=== PATIENT | male | born 1995 | race Caucasian/White ===

== ENCOUNTER 2018-01-07 13:01 | Outpatient (CLI) | payer OTHER ==
--- NOTE | 2018-01-07 16:08 | RAD ---
TWO VIEW ABDOMEN: 01/07/18 HISTORY: Constipation and abdominal pain. Scattered stool and gas seen throughout the colon. Small bowel gas pattern is normal. No mass effect or abnormal calcification. Slight curvature of the lumbar spine to the left. IMPRESSION: Unremarkable bowel gas pattern. POS: SIRISHA
== END 2018-01-07 13:02 | disposition home or self-care (01) ==
LOC: BICRAD 13:01
PROVIDERS: ATTEND Physician Assistant Medical
DX: K59.09 Other constipation (principal)
CPT/HCPCS: 74019

== ENCOUNTER 2021-11-08 11:28 | Outpatient (CLI) | payer OTHER | END 2021-11-08 11:29 | disposition home or self-care (01) | LOC: BICRAD 11:28 | PROVIDERS: ATTEND Family Medicine | DX: M25.572 Pain in left ankle and joints of left foot (principal) ==

== ENCOUNTER 2022-09-25 15:05 | Outpatient (CLI) | payer OTHER | END 2022-09-25 15:06 | disposition home or self-care (01) | LOC: ULT 15:05 | PROVIDERS: ATTEND Urology | DX: R35.0 Frequency of micturition (principal); R39.15 Urgency of urination | CPT/HCPCS: 76770 ==